=== PATIENT | male | born 1980 | race Caucasian/White ===

== ENCOUNTER 2023-10-22 13:16 | Emergency (ER) | payer OTHER ==
[~2023-10-22] VITALS: Ht 167.6 cm; Wt 81.6 kg
[2023-10-22 13:37] VITALS: BP 127/84; PULSE 90; RESP 24; TEMP 98.3; O2SAT 94
[2023-10-22] MEDS: ACETAMINOPHEN EXTRA STRENGTH 500 MG TAB PO ONE (14:48)
[2023-10-22] MEDS ORDERED: CHLO3800 BC (15:15)
[2023-10-22] MEDS ORDERED: BACI-418 TP (15:15)
[2023-10-22] MEDS ORDERED: ACET-10509 PO (15:15)
== END 2023-10-22 15:31 | disposition home or self-care (01) ==
LOC: MED 13:16
DX: S01.511A Laceration without foreign body of lip, initial encounter (principal); S80.811A Abrasion, right lower leg, initial encounter; J45.909 Unspecified asthma, uncomplicated; E78.5 Hyperlipidemia, unspecified; Z79.899 Other long term (current) drug therapy; W10.8XXA Fall (on) (from) other stairs and steps, initial encounter; Y93.89 Activity, other specified; Y92.210 Daycare center as the place of occurrence of the external cause; Y99.8 Other external cause status
CPT/HCPCS: 99283